=== PATIENT | female | born 1965 | race Caucasian/White ===

== ENCOUNTER 2018-05-06 17:25 | Inpatient (IN) | payer MEDICARE, MEDICAID ==
[~2018-05-06] VITALS: Ht 175.3 cm; Wt 94.0 kg
--- NOTE | 2018-05-06 17:42 | NUR ---
THIS IS A 52 YEAR OLD FEMALE BIB BY AMBULANCE FROM [facility] FOR JAUNDICE, LUNG CA, DM. PT RECEIVED MORPHINE AND ZOFRAN AT OTHER FACILITY, ALONG WITH 2 LITERS OF FLUID. PT BLOOD SUGAR WAS 27 IN ROUTE, WAS GIVEN AN AMP OF D50. PT A&OX 4, BS 69. SET ON [employer], SP02 SATS DROP TO 69% ON RA, PLACE ON 2LN AT 96%, CYCLE VS. BED RAILS UP X 2, CALL LIGHT IN PLACE.
[2018-05-06] MEDS ORDERED: SODIUM CHLORIDE 0.9%, 500ML IVBOLUS ONE (18:00)
[2018-05-06] MEDS ORDERED: INSU100V8 SQ (18:11)
[2018-05-06] MEDS ORDERED: INSU100C SQ-INSULIN (18:11)
[2018-05-06] MEDS ORDERED: PREG100C PO (18:12)
[2018-05-06] MEDS ORDERED: LISI5TAB7 PO (18:12)
[2018-05-06] MEDS ORDERED: LEVO88TA2 PO (18:13)
[2018-05-06] MEDS ORDERED: ALBU6.7H INH (18:19)
--- NOTE | 2018-05-06 18:20 | NUR ---
PT RESTING, IV INFUSING WELL. PT VERBALIZED NO NEEDS AT THIS TIME. CALL LIGHT IN PLACE.
--- NOTE | 2018-05-06 18:53 | NUR ---
report received from mauri rm.
--- NOTE | 2018-05-06 18:55 | NUR ---
REPORT TO PAPO MAZARIEGOS, PLAN OF CARE DISCUSSED.
[2018-05-06] MEDS ORDERED: BISACODYL 10 MG SUPP PR PRN (19:00)
[2018-05-06] MEDS ORDERED: CHOLESTYRAMINE LIGHT 4GM PACKET PO PRN (19:00)
[2018-05-06] MEDS ORDERED: POLYETHYLENE GLYCOL 17 GM PACKET PO PRN (19:00)
--- NOTE | 2018-05-06 19:04 | NUR ---
report given to vazquez rm. all questions answered.
[2018-05-06 19:47] LABS: INTERNATIONAL NORMALIZED RATIO 1.37 (0.93-1.1); PROTHROMBIN TIME 14.2 Seconds (9.6-11.5)
[2018-05-06 20:00] VITALS: BP 119/72
[2018-05-06] MEDS: D5%-0.9% NACL 1,000 ML IV SCH (20:41)
[2018-05-06] MEDS: PREGABALIN 100 MG CAPSULE PO SCH (20:41)
[2018-05-07 01:14] VITALS: BP 114/68
[2018-05-07] MEDS: D5%-0.9% NACL 1,000 ML IV SCH ×2 (04:22→14:14)
[2018-05-07] MEDS: LEVOTHYROXINE 88 MCG TABLET PO SCH (04:22)
[2018-05-07 04:45] LABS: ANION GAP 7 mmol/L (5-15); CALCIUM 7.9 mg/dL (8.5-10.1); CHLORIDE 106 mmol/L (98-107)
[2018-05-07 04:47] LABS: ALANINE AMINOTRANSFERASE 103 U/L (12-78); ALKALINE PHOSPHATASE 920 U/L (45-117); BILIRUBIN,TOTAL 10.9 mg/dL (0.2-1.0); CREATININE 2.41 mg/dL (0.55-1.02); TOTAL PROTEIN 5.5 g/dL (6.4-8.2)
[2018-05-07 04:55] LABS: MEAN CORPUSCULAR HEMOGLOBIN 28.3 pg (27.0-34.8); MEAN CORPUSCULAR HGB CONC 34.6 g/dL (32.4-35.8); MEAN CORPUSCULAR VOLUME 81.7 fL (80-100); MEAN PLATELET VOLUME 9.5 fL (7.4-10.4); PLATELET COUNT 281 x10^3/uL (130-400); RED BLOOD COUNT 3.33 x10^6/uL (3.82-5.3); RED CELL DISTRIBUTION WIDTH 19.9 % (9.6-15.2)
[2018-05-07 05:45] LABS: MD YES
[2018-05-07 05:47] LABS: EOS#(MANUAL) 0.28 x10^3/uL (0.0-0.4); EOS% (MANUAL) 4 % (1-7); LYMPH#(MANUAL) 1.33 x10^3/uL (1-3.4); LYMPHS% (MANUAL) 19 % (22-44); MONOS#(MANUAL) 0.21 x10^3/uL (0.3-2.7); MONOS% (MANUAL) 3 % (2-9); SEG#(MANUAL) 5.18 x10^3/uL (1.8-6.8); SEGS% (MANUAL) 74 % (42-75)
[2018-05-07 05:48] LABS: <PLATELET ESTIMATE> ADEQUATE; <PLT MORPHOLOGY> NORMAL PLT MORPH; <RBC MORPHOLOGY> NORMAL
[2018-05-07 08:55] VITALS: BP 100/60
[2018-05-07] MEDS ORDERED: LISINOPRIL 5 MG TABLET PO SCH (09:00)
[2018-05-07] MEDS: SENNA/DOCUSATE TABLET PO SCH (09:00)
[2018-05-07] MEDS: LEVOFLOXACIN/PMX 500MG/100ML 100 ML IV SCH (09:48)
[2018-05-07] MEDS: PREGABALIN 100 MG CAPSULE PO SCH ×2 (09:49→21:33)
[2018-05-07] MEDS ORDERED: DEXTROSE 4 GM TAB.CHEW PO PRN (12:00)
[2018-05-07] MEDS ORDERED: GLUCAGON 1 MG IM PRN (12:00)
[2018-05-07] MEDS ORDERED: DEXTROSE 50%, 50ML SYRINGE IVPush PRN (12:00)
[2018-05-07] MEDS: SODIUM CHLORIDE FLUSH 10ML SYR IVF SCH ×2 (12:00→21:33)
[2018-05-07] MEDS: INSULIN LISPRO 100 UNITS/ML, PEN SQ-INSULIN SCH ×3 (12:17→21:35)
[2018-05-07] MEDS: morphine SULFATE 10 MG/ML, 1ML IVPush PRN ×2 (14:16→18:50)
[2018-05-07 14:18] VITALS: BP 105/66
[2018-05-07 18:44] VITALS: BP 106/57
[2018-05-08 00:18] VITALS: BP 101/64
[2018-05-08] MEDS ORDERED: MORPHINE SULFATE 4 MG/ML, 1ML ONE (00:54)
[2018-05-08] MEDS: morphine SULFATE 10 MG/ML, 1ML IVPush PRN ×2 (00:58→08:01)
[2018-05-08] MEDS: INSULIN GLARGINE 100 UNITS/ML, PEN SQ-INSULIN SCH ×3 (01:11→22:48)
[2018-05-08 04:54] LABS: MEAN CORPUSCULAR HEMOGLOBIN 28.2 pg (27.0-34.8); MEAN CORPUSCULAR HGB CONC 34.5 g/dL (32.4-35.8); MEAN CORPUSCULAR VOLUME 81.7 fL (80-100); MEAN PLATELET VOLUME 9.3 fL (7.4-10.4); PLATELET COUNT 284 x10^3/uL (130-400); RED BLOOD COUNT 3.35 x10^6/uL (3.82-5.3); RED CELL DISTRIBUTION WIDTH 20.2 % (9.6-15.2)
[2018-05-08 05:05] LABS: CHLORIDE 107 mmol/L (98-107)
[2018-05-08 05:25] LABS: ALANINE AMINOTRANSFERASE 122 U/L (12-78); ALKALINE PHOSPHATASE 919 U/L (45-117); ANION GAP 6 mmol/L (5-15); BILIRUBIN,TOTAL 11.1 mg/dL (0.2-1.0); CALCIUM 8.1 mg/dL (8.5-10.1); CREATININE 2.46 mg/dL (0.55-1.02); TOTAL PROTEIN 5.7 g/dL (6.4-8.2)
[2018-05-08] MEDS: LEVOTHYROXINE 88 MCG TABLET PO SCH (05:57)
[2018-05-08 06:23] LABS: MD YES
[2018-05-08 06:25] LABS: ANISOCYTOSIS 1+; EOS% (MANUAL) 4 % (1-7); LYMPH#(MANUAL) 1.28 x10^3/uL (1-3.4); LYMPHS% (MANUAL) 17 % (22-44); MONOS#(MANUAL) 0.45 x10^3/uL (0.3-2.7); MONOS% (MANUAL) 6 % (2-9); SEG#(MANUAL) 5.48 x10^3/uL (1.8-6.8); SEGS% (MANUAL) 73 % (42-75)
[2018-05-08 06:26] LABS: <PLATELET ESTIMATE> ADEQUATE; <PLT MORPHOLOGY> NORMAL PLT MORPH
[2018-05-08 07:03] VITALS: BP 99/64
[2018-05-08] MEDS: SENNA/DOCUSATE TABLET PO SCH (08:01)
[2018-05-08] MEDS: PREGABALIN 100 MG CAPSULE PO SCH ×2 (08:01→22:46)
[2018-05-08] MEDS: LEVOFLOXACIN/PMX 500MG/100ML 100 ML IV SCH (08:01)
[2018-05-08] MEDS: SODIUM CHLORIDE FLUSH 10ML SYR IVF SCH ×2 (08:05→23:03)
[2018-05-08] MEDS: INSULIN LISPRO 100 UNITS/ML, PEN SQ-INSULIN SCH ×4 (08:05→22:47)
[2018-05-08] MEDS ORDERED: MIDAZOLAM 1 MG/ML, 2ML ONE (09:36)
[2018-05-08] MEDS ORDERED: FENTANYL PF 100 MCG/2ML ONE (09:36)
[2018-05-08] MEDS ORDERED: LIDOCAINE 2%, 6 ML JEL.PF.APP MM ONE ×2 (09:37)
[2018-05-08] MEDS: D5%-0.9% NACL 1,000 ML IV SCH ×2 (10:16→23:03)
[2018-05-08] MEDS ORDERED: OXYcodone 5 MG/5 ML ORAL.SOL UDC PO PRN (10:30)
[2018-05-08] MEDS ORDERED: ALBUTEROL/IPRATROPIUM 2.5MG/0.5MG, 3 ML NPPB PRN (10:30)
[2018-05-08] MEDS ORDERED: MEPERIDINE/PF 25MG/0.5ML IVPush PRN (10:30)
[2018-05-08] MEDS ORDERED: MIDAZOLAM 1 MG/ML, 2ML IV PRN (10:30)
[2018-05-08] MEDS ORDERED: FENTANYL PF 100 MCG/2ML IV PRN (10:30)
[2018-05-08] MEDS ORDERED: ONDANSETRON 2MG/ML, 2ML IV PRN (10:30)
[2018-05-08] MEDS ORDERED: ONDANSETRON 2MG/ML, 2ML ONE (10:43)
[2018-05-08] MEDS ORDERED: DEXAMETHASONE 4 MG/ML, 1ML ONE (10:43)
[2018-05-08] MEDS ORDERED: PROPOFOL 10 MG/ML, 20ML ONE (10:43)
[2018-05-08] MEDS ORDERED: GLUCAGON 1 MG ONE ×2 (10:59→11:48)
[2018-05-08] MEDS ORDERED: PHENYLEPHRINE 10 MG/ML ONE (11:13)
[2018-05-08] MEDS ORDERED: SUCCINYLCHOLINE 20 MG/ML, 10ML ONE (11:13)
[2018-05-08] MEDS ORDERED: ALBUTEROL/IPRATROPIUM 2.5MG/0.5MG, 3 ML ONE (12:29)
[2018-05-08 13:34] VITALS: BP 122/69
[2018-05-08 22:43] VITALS: BP 107/67
[2018-05-09 00:54] VITALS: BP 108/66
[2018-05-09] MEDS: morphine SULFATE 10 MG/ML, 1ML IVPush PRN ×3 (01:07→21:27)
[2018-05-09 05:36] LABS: MEAN CORPUSCULAR HEMOGLOBIN 27.8 pg (27.0-34.8); MEAN CORPUSCULAR HGB CONC 33.8 g/dL (32.4-35.8); MEAN CORPUSCULAR VOLUME 82.3 fL (80-100); MEAN PLATELET VOLUME 9.6 fL (7.4-10.4); PLATELET COUNT 265 x10^3/uL (130-400); RED BLOOD COUNT 3.32 x10^6/uL (3.82-5.3); RED CELL DISTRIBUTION WIDTH 20.3 % (9.6-15.2)
[2018-05-09 05:52] LABS: CHLORIDE 107 mmol/L (98-107)
[2018-05-09] MEDS: LEVOTHYROXINE 88 MCG TABLET PO SCH (05:56)
[2018-05-09 06:18] LABS: ALANINE AMINOTRANSFERASE 108 U/L (12-78); ALBUMIN 1.9 g/dL (3.4-5.0); ALKALINE PHOSPHATASE 989 U/L (45-117); ANION GAP 7 mmol/L (5-15); BILIRUBIN,TOTAL 10.4 mg/dL (0.2-1.0); CALCIUM 8.2 mg/dL (8.5-10.1); CREATININE 2.66 mg/dL (0.55-1.02); TOTAL PROTEIN 5.3 g/dL (6.4-8.2)
[2018-05-09 06:21] LABS: MD YES
[2018-05-09 06:23] LABS: LYMPH#(MANUAL) 1.04 x10^3/uL (1-3.4); LYMPHS% (MANUAL) 14 % (22-44); MONOS% (MANUAL) 4 % (2-9); SEG#(MANUAL) 6.07 x10^3/uL (1.8-6.8); SEGS% (MANUAL) 82 % (42-75)
[2018-05-09 06:24] LABS: <PLATELET ESTIMATE> ADEQUATE; <PLT MORPHOLOGY> NORMAL PLT MORPH; ANISOCYTOSIS 1+; TARGET CELLS 1+
[2018-05-09 06:25] LABS: POLYCHROMASIA 1+
[2018-05-09 07:41] VITALS: BP 98/59
[2018-05-09] MEDS: PREGABALIN 100 MG CAPSULE PO SCH ×2 (07:47→20:44)
[2018-05-09] MEDS: SENNA/DOCUSATE TABLET PO SCH (07:48)
[2018-05-09] MEDS: LEVOFLOXACIN/PMX 250MG/50ML 50 ML IV SCH (07:50)
[2018-05-09] MEDS: SODIUM CHLORIDE FLUSH 10ML SYR IVF SCH ×2 (07:52→20:44)
[2018-05-09] MEDS: INSULIN LISPRO 100 UNITS/ML, PEN SQ-INSULIN SCH ×4 (08:00→20:44)
[2018-05-09] MEDS: INSULIN GLARGINE 100 UNITS/ML, PEN SQ-INSULIN SCH ×3 (08:00→21:25)
[2018-05-09] MEDS: D5%-0.9% NACL 1,000 ML IV SCH (08:04)
[2018-05-09 12:44] LABS: INTERNATIONAL NORMALIZED RATIO 1.98 (0.93-1.1); PROTHROMBIN TIME 20.3 Seconds (9.6-11.5)
[2018-05-09 13:37] VITALS: BP 106/68
[2018-05-09 18:31] VITALS: BP 101/62
[2018-05-10] MEDS: morphine SULFATE 10 MG/ML, 1ML IVPush PRN ×3 (00:13→22:22)
[2018-05-10 00:58] VITALS: BP 109/68
[2018-05-10 04:49] LABS: ALANINE AMINOTRANSFERASE 109 U/L (12-78); ALBUMIN 1.9 g/dL (3.4-5.0); ANION GAP 7 mmol/L (5-15); CALCIUM 8.2 mg/dL (8.5-10.1); CHLORIDE 112 mmol/L (98-107)
[2018-05-10 05:04] LABS: ALKALINE PHOSPHATASE 963 U/L (45-117); BILIRUBIN,TOTAL 10.5 mg/dL (0.2-1.0); CREATININE 2.53 mg/dL (0.55-1.02); TOTAL PROTEIN 5.6 g/dL (6.4-8.2)
[2018-05-10] MEDS: LEVOTHYROXINE 88 MCG TABLET PO SCH (05:21)
[2018-05-10] MEDS: INSULIN LISPRO 100 UNITS/ML, PEN SQ-INSULIN SCH ×4 (07:00→21:00)
[2018-05-10 08:06] LABS: INTERNATIONAL NORMALIZED RATIO 2.55 (0.93-1.1); PROTHROMBIN TIME 25.8 Seconds (9.6-11.5)
[2018-05-10 08:12] VITALS: BP 110/64
[2018-05-10] MEDS: LEVOFLOXACIN/PMX 250MG/50ML 50 ML IV SCH (08:40)
[2018-05-10] MEDS: SODIUM CHLORIDE FLUSH 10ML SYR IVF SCH ×2 (08:43→21:00)
[2018-05-10] MEDS: INSULIN GLARGINE 100 UNITS/ML, PEN SQ-INSULIN SCH ×3 (08:44→21:00)
[2018-05-10] MEDS: SENNA/DOCUSATE TABLET PO SCH (08:44)
[2018-05-10] MEDS: PREGABALIN 100 MG CAPSULE PO SCH ×2 (08:44→21:23)
[2018-05-10] MEDS ORDERED: PHYTONADIONE 10 MG/ML, 1ML SQ ONE (12:00)
[2018-05-10 14:02] LABS: CHLORIDE,URINE RANDOM 35 mmol/L; POTASSIUM,URINE RANDOM 40 mmol/L; SODIUM,URINE RANDOM 26 mmol/L
[2018-05-10 14:03] LABS: MICROSCOPIC INDICATED
[2018-05-10 14:37] VITALS: BP 98/61
[2018-05-10 19:26] VITALS: BP 103/64
[2018-05-10] MEDS ORDERED: MORPHINE SULFATE 4 MG/ML, 1ML ONE (22:16)
[2018-05-11 00:46] VITALS: BP 98/57
[2018-05-11 04:57] LABS: MD YES; MEAN CORPUSCULAR VOLUME 82.4 fL (80-100); MEAN PLATELET VOLUME 9.6 fL (7.4-10.4); PLATELET COUNT 217 x10^3/uL (130-400); RED BLOOD COUNT 3.44 x10^6/uL (3.82-5.3); RED CELL DISTRIBUTION WIDTH 21.2 % (9.6-15.2)
[2018-05-11 05:00] LABS: INTERNATIONAL NORMALIZED RATIO 1.51 (0.93-1.1); PROTHROMBIN TIME 15.6 Seconds (9.6-11.5)
[2018-05-11 05:07] LABS: ALBUMIN 1.8 g/dL (3.4-5.0); ANION GAP 7 mmol/L (5-15); CALCIUM 8.3 mg/dL (8.5-10.1); CHLORIDE 108 mmol/L (98-107)
[2018-05-11 05:11] LABS: ALANINE AMINOTRANSFERASE 95 U/L (12-78); ALKALINE PHOSPHATASE 974 U/L (45-117); BILIRUBIN,TOTAL 12.5 mg/dL (0.2-1.0); CREATININE 2.33 mg/dL (0.55-1.02); TOTAL PROTEIN 5.3 g/dL (6.4-8.2)
[2018-05-11 05:46] LABS: BAND#(MANUAL) 0.06 x10^3/uL; BANDS%(MANUAL) 1 % (0-7); EOS#(MANUAL) 0.13 x10^3/uL (0.0-0.4); EOS% (MANUAL) 2 % (1-7); LYMPH#(MANUAL) 1.15 x10^3/uL (1-3.4); LYMPHS% (MANUAL) 18 % (22-44); MONOS#(MANUAL) 0.51 x10^3/uL (0.3-2.7); MONOS% (MANUAL) 8 % (2-9); SEG#(MANUAL) 4.54 x10^3/uL (1.8-6.8); SEGS% (MANUAL) 71 % (42-75)
[2018-05-11 05:47] LABS: ANISOCYTOSIS 1+; TARGET CELLS 2+
[2018-05-11 05:48] LABS: <PLATELET ESTIMATE> ADEQUATE; <PLT MORPHOLOGY> NORMAL PLT MORPH
[2018-05-11] MEDS: LEVOTHYROXINE 88 MCG TABLET PO SCH (06:00)
[2018-05-11 06:50] VITALS: BP 107/64
[2018-05-11] MEDS: INSULIN LISPRO 100 UNITS/ML, PEN SQ-INSULIN SCH ×4 (07:00→20:04)
[2018-05-11] MEDS: INSULIN GLARGINE 100 UNITS/ML, PEN SQ-INSULIN SCH ×3 (08:09→21:00)
[2018-05-11] MEDS: SENNA/DOCUSATE TABLET PO SCH (08:27)
[2018-05-11] MEDS: LEVOFLOXACIN/PMX 250MG/50ML 50 ML IV SCH (08:27)
[2018-05-11] MEDS: SODIUM CHLORIDE FLUSH 10ML SYR IVF SCH ×2 (08:27→21:00)
[2018-05-11] MEDS: PREGABALIN 100 MG CAPSULE PO SCH ×2 (08:27→20:03)
[2018-05-11] MEDS ORDERED: PHYTONADIONE 10 MG/ML, 1ML SQ ONE (08:30)
[2018-05-11] MEDS: morphine SULFATE 10 MG/ML, 1ML IVPush PRN ×2 (08:33→19:54)
[2018-05-11] MEDS ORDERED: LIDOCAINE-MPF 1%, 5ML ONE (11:40)
[2018-05-11] MEDS ORDERED: FLUMAZENIL 0.1 MG/1 ML, 5ML ONE (13:03)
[2018-05-11] MEDS ORDERED: NALOXONE 1 MG/ML, 2ML ONE (13:03)
[2018-05-11] MEDS ORDERED: MIDAZOLAM 1 MG/ML, 5ML ONE (13:03)
[2018-05-11] MEDS ORDERED: FENTANYL PF 100 MCG/2ML ONE (13:03)
[2018-05-11 14:14] VITALS: BP 115/72
[2018-05-11 19:29] VITALS: BP 110/68
[2018-05-11] MEDS ORDERED: MORPHINE SULFATE 4 MG/ML, 1ML IV ONE (20:30)
[2018-05-12 01:40] VITALS: BP 114/65
[2018-05-12 04:48] LABS: INTERNATIONAL NORMALIZED RATIO 1.06 (0.93-1.1); PROTHROMBIN TIME 11.1 Seconds (9.6-11.5)
[2018-05-12 04:49] LABS: MEAN CORPUSCULAR HEMOGLOBIN 27.2 pg (27.0-34.8); MEAN CORPUSCULAR HGB CONC 33.2 g/dL (32.4-35.8); MEAN CORPUSCULAR VOLUME 81.9 fL (80-100); MEAN PLATELET VOLUME 9.3 fL (7.4-10.4); PLATELET COUNT 221 x10^3/uL (130-400); RED BLOOD COUNT 3.35 x10^6/uL (3.82-5.3)
[2018-05-12 04:55] LABS: CALCIUM 8.2 mg/dL (8.5-10.1); CHLORIDE 108 mmol/L (98-107)
[2018-05-12 05:02] LABS: ALANINE AMINOTRANSFERASE 78 U/L (12-78); ALBUMIN 1.7 g/dL (3.4-5.0); ALKALINE PHOSPHATASE 926 U/L (45-117); ANION GAP 8 mmol/L (5-15); CREATININE 2.18 mg/dL (0.55-1.02); TOTAL PROTEIN 5.2 g/dL (6.4-8.2)
[2018-05-12 05:04] LABS: BILIRUBIN,TOTAL 15.8 mg/dL (0.2-1.0)
[2018-05-12] MEDS: LEVOTHYROXINE 88 MCG TABLET PO SCH (05:37)
[2018-05-12 05:57] LABS: MD YES
[2018-05-12 05:59] LABS: ANISOCYTOSIS 1+; EOS#(MANUAL) 0.07 x10^3/uL (0.0-0.4); EOS% (MANUAL) 1 % (1-7); LYMPH#(MANUAL) 1.21 x10^3/uL (1-3.4); LYMPHS% (MANUAL) 17 % (22-44); MONOS#(MANUAL) 0.57 x10^3/uL (0.3-2.7); MONOS% (MANUAL) 8 % (2-9); SEG#(MANUAL) 5.25 x10^3/uL (1.8-6.8); SEGS% (MANUAL) 74 % (42-75)
[2018-05-12 06:00] LABS: <PLATELET ESTIMATE> ADEQUATE; <PLT MORPHOLOGY> NORMAL PLT MORPH; HYPOCHROMIA 1+; TARGET CELLS 2+
[2018-05-12] MEDS: morphine SULFATE 10 MG/ML, 1ML IVPush PRN ×2 (06:36→15:43)
[2018-05-12 06:52] VITALS: BP 117/66
[2018-05-12] MEDS: INSULIN GLARGINE 100 UNITS/ML, PEN SQ-INSULIN SCH ×3 (07:01→21:00)
[2018-05-12] MEDS: INSULIN LISPRO 100 UNITS/ML, PEN SQ-INSULIN SCH ×4 (07:17→21:00)
[2018-05-12] MEDS: SENNA/DOCUSATE TABLET PO SCH (07:18)
[2018-05-12] MEDS: PREGABALIN 100 MG CAPSULE PO SCH ×2 (07:18→21:00)
[2018-05-12] MEDS: SODIUM CHLORIDE FLUSH 10ML SYR IVF SCH ×2 (07:18→21:00)
[2018-05-12] MEDS: LEVOFLOXACIN/PMX 750MG/150ML 150 ML IV SCH ×2 (07:18→07:48)
[2018-05-12] MEDS ORDERED: NALOXONE 1 MG/ML, 2ML ONE (08:44)
[2018-05-12] MEDS ORDERED: FENTANYL PF 100 MCG/2ML ONE (08:44)
[2018-05-12] MEDS ORDERED: MIDAZOLAM 1 MG/ML, 5ML ONE (08:44)
[2018-05-12] MEDS ORDERED: LIDOCAINE-MPF 1%, 5ML ONE (08:44)
[2018-05-12] MEDS ORDERED: FLUMAZENIL 0.1 MG/1 ML, 5ML ONE (08:44)
[2018-05-12 13:09] VITALS: BP 121/69
[2018-05-12] MEDS: ONDANSETRON 2MG/ML, 2ML IVPush PRN (15:42)
[2018-05-12] MEDS ORDERED: ALUMINUM/MAG/SIMETHICONE 30 ML UDC PO ONE (16:00)
[2018-05-12 20:08] VITALS: BP 97/61
[2018-05-12] MEDS: ALUMINUM/MAG/SIMETHICONE 30 ML UDC PO PRN (22:37)
[2018-05-13 01:17] VITALS: BP 133/66
[2018-05-13 04:51] LABS: ALANINE AMINOTRANSFERASE 150 U/L (12-78); ALBUMIN 1.9 g/dL (3.4-5.0); ANION GAP 8 mmol/L (5-15); CHLORIDE 107 mmol/L (98-107); CREATININE 2.45 mg/dL (0.55-1.02)
[2018-05-13 04:57] LABS: MEAN CORPUSCULAR HEMOGLOBIN 27.5 pg (27.0-34.8); MEAN CORPUSCULAR HGB CONC 33.3 g/dL (32.4-35.8); MEAN CORPUSCULAR VOLUME 82.6 fL (80-100); MEAN PLATELET VOLUME 9.5 fL (7.4-10.4); PLATELET COUNT 250 x10^3/uL (130-400); RED BLOOD COUNT 3.57 x10^6/uL (3.82-5.3); RED CELL DISTRIBUTION WIDTH 21.1 % (9.6-15.2)
[2018-05-13 05:04] LABS: ALKALINE PHOSPHATASE 1112 U/L (45-117); TOTAL PROTEIN 5.5 g/dL (6.4-8.2)
[2018-05-13 05:09] LABS: BILIRUBIN,TOTAL 18.2 mg/dL (0.2-1.0)
[2018-05-13 05:44] LABS: MD YES
[2018-05-13 05:46] LABS: <PLATELET ESTIMATE> ADEQUATE; <PLT MORPHOLOGY> NORMAL PLT MORPH; ANISOCYTOSIS 1+; HYPOCHROMIA 1+; LYMPH#(MANUAL) 0.86 x10^3/uL (1-3.4); LYMPHS% (MANUAL) 9 % (22-44); MONOS#(MANUAL) 0.29 x10^3/uL (0.3-2.7); MONOS% (MANUAL) 3 % (2-9); NRBC % (MANUAL) 1 % (0-1); SEG#(MANUAL) 8.45 x10^3/uL (1.8-6.8); SEGS% (MANUAL) 88 % (42-75); TARGET CELLS 2+
[2018-05-13] MEDS: LEVOTHYROXINE 88 MCG TABLET PO SCH (06:02)
[2018-05-13] MEDS: morphine SULFATE 10 MG/ML, 1ML IVPush PRN ×3 (06:25→13:37)
[2018-05-13 07:55] VITALS: BP 94/56
[2018-05-13] MEDS: ONDANSETRON 2MG/ML, 2ML IVPush PRN ×2 (07:59→19:24)
[2018-05-13] MEDS: INSULIN LISPRO 100 UNITS/ML, PEN SQ-INSULIN SCH ×4 (08:16→21:39)
[2018-05-13] MEDS: SENNA/DOCUSATE TABLET PO SCH (09:37)
[2018-05-13] MEDS: PREGABALIN 100 MG CAPSULE PO SCH ×2 (09:37→21:38)
[2018-05-13] MEDS: INSULIN GLARGINE 100 UNITS/ML, PEN SQ-INSULIN SCH ×3 (09:38→21:39)
[2018-05-13] MEDS: SODIUM CHLORIDE FLUSH 10ML SYR IVF SCH ×2 (09:39→19:25)
[2018-05-13 14:27] VITALS: BP 90/56
[2018-05-13 19:26] VITALS: BP 92/59
[2018-05-14] VITALS (7 sets, daily range): BP systolic 63–108; BP diastolic 39–74
[2018-05-14] MEDS: ONDANSETRON 2MG/ML, 2ML IVPush PRN (03:30)
[2018-05-14] MEDS: LEVOTHYROXINE 88 MCG TABLET PO SCH (05:54)
[2018-05-14] MEDS: morphine SULFATE 10 MG/ML, 1ML IVPush PRN ×2 (06:18→12:43)
[2018-05-14] MEDS: SENNA/DOCUSATE TABLET PO SCH (09:16)
[2018-05-14] MEDS: PREGABALIN 100 MG CAPSULE PO SCH ×2 (09:16→22:21)
[2018-05-14] MEDS: LEVOFLOXACIN/PMX 750MG/150ML 150 ML IV SCH (09:16)
[2018-05-14] MEDS: SODIUM CHLORIDE FLUSH 10ML SYR IVF SCH ×2 (09:17→22:21)
[2018-05-14] MEDS: INSULIN GLARGINE 100 UNITS/ML, PEN SQ-INSULIN SCH ×3 (09:17→22:21)
[2018-05-14] MEDS: INSULIN LISPRO 100 UNITS/ML, PEN SQ-INSULIN SCH ×4 (09:18→22:21)
[2018-05-14] MEDS ORDERED: SODIUM CHLORIDE 0.9% 1,000ML IVBOLUS ONE (15:00)
[2018-05-14] MEDS ORDERED: HYDROCORTISONE 100 MG INJ. IVPush STA (15:12)
[2018-05-14] MEDS ORDERED: ALBUMIN HUMAN 25% 100 ML IV STA (15:14)
[2018-05-15 00:55] VITALS: BP 92/60
[2018-05-15] MEDS: ALUMINUM/MAG/SIMETHICONE 30 ML UDC PO PRN (04:27)
[2018-05-15] MEDS: LEVOTHYROXINE 88 MCG TABLET PO SCH ×2 (06:22→06:24)
[2018-05-15 06:55] VITALS: BP 101/63
[2018-05-15] MEDS: INSULIN LISPRO 100 UNITS/ML, PEN SQ-INSULIN SCH ×4 (07:54→21:00)
[2018-05-15] MEDS: INSULIN GLARGINE 100 UNITS/ML, PEN SQ-INSULIN SCH ×3 (07:57→21:00)
[2018-05-15] MEDS: PREGABALIN 100 MG CAPSULE PO SCH ×2 (10:12→21:44)
[2018-05-15] MEDS: SENNA/DOCUSATE TABLET PO SCH (10:12)
[2018-05-15 12:19] VITALS: BP 92/50
[2018-05-15] MEDS: morphine SULFATE 10 MG/ML, 1ML IVPush PRN ×2 (13:26→21:43)
[2018-05-15] MEDS: SODIUM CHLORIDE FLUSH 10ML SYR IVF SCH ×2 (13:29→21:44)
[2018-05-15] MEDS: ONDANSETRON 2MG/ML, 2ML IVPush PRN (16:39)
[2018-05-15 19:05] VITALS: BP 96/63
[2018-05-16 00:04] VITALS: BP 99/59
[2018-05-16] MEDS: morphine SULFATE 10 MG/ML, 1ML IVPush PRN ×2 (00:54→04:37)
[2018-05-16] MEDS: LEVOTHYROXINE 88 MCG TABLET PO SCH (06:00)
[2018-05-16 06:50] VITALS: BP 97/62
[2018-05-16] MEDS: INSULIN LISPRO 100 UNITS/ML, PEN SQ-INSULIN SCH ×2 (07:50→12:15)
[2018-05-16] MEDS: SODIUM CHLORIDE FLUSH 10ML SYR IVF SCH (07:51)
[2018-05-16] MEDS: LEVOFLOXACIN/PMX 750MG/150ML 150 ML IV SCH (07:54)
[2018-05-16] MEDS: SENNA/DOCUSATE TABLET PO SCH (07:55)
[2018-05-16] MEDS: PREGABALIN 100 MG CAPSULE PO SCH (07:55)
[2018-05-16] MEDS: INSULIN GLARGINE 100 UNITS/ML, PEN SQ-INSULIN SCH (07:59)
[2018-05-16] MEDS ORDERED: OXYcodone/APAP 5/325MG TABLET PO PRN (12:00)
[2018-05-16] MEDS: ALUMINUM/MAG/SIMETHICONE 30 ML UDC PO PRN (12:07)
[2018-05-16 12:25] VITALS: BP 93/54
[2018-05-16] MEDS ORDERED: FAMOTIDINE 20 MG TABLET PO SCH (21:00)
== END 2018-05-17 01:10 | disposition expired | DRG 435 ==
LOC: ED 19:06 → EDIP 19:07 → 3NW 19:18
PROVIDERS: ADMIT Family Medicine; ATTEND Family Medicine
PROC: 0F7D8DZ Dilation of Pancreatic Duct with Intraluminal Device, Via Natural or Artificial Opening Endoscopic (ICD-10-PCS; 2018-05-08)
PROC: 0FJB8ZZ Inspection of Hepatobiliary Duct, Via Natural or Artificial Opening Endoscopic (ICD-10-PCS; 2018-05-08)
PROC: 0FDG4ZX Extraction of Pancreas, Percutaneous Endoscopic Approach, Diagnostic (ICD-10-PCS; 2018-05-08)
PROC: 0DJ08ZZ Inspection of Upper Intestinal Tract, Via Natural or Artificial Opening Endoscopic (ICD-10-PCS; principal; 2018-05-08 10:00)
PROC: 0WB83ZX Excision of Chest Wall, Percutaneous Approach, Diagnostic (ICD-10-PCS; 2018-05-11)
PROC: 0F793DZ Dilation of Common Bile Duct with Intraluminal Device, Percutaneous Approach (ICD-10-PCS; 2018-05-12)
PROC: BF101ZZ Fluoroscopy of Bile Ducts using Low Osmolar Contrast (ICD-10-PCS; 2018-05-12)
DX: C25.0 Malignant neoplasm of head of pancreas (principal); K83.1 Obstruction of bile duct; N17.0 Acute kidney failure with tubular necrosis; J18.9 Pneumonia, unspecified organism; C34.90 Malignant neoplasm of unspecified part of unspecified bronchus or lung; E87.2 Acidosis; D68.9 Coagulation defect, unspecified; J44.0 Chronic obstructive pulmonary disease with (acute) lower respiratory infection; E46 Unspecified protein-calorie malnutrition; I31.3 Pericardial effusion (noninflammatory); J44.9 Chronic obstructive pulmonary disease, unspecified; Z88.0 Allergy status to penicillin; E03.9 Hypothyroidism, unspecified; G40.909 Epilepsy, unspecified, not intractable, without status epilepticus; R91.1 Solitary pulmonary nodule; I95.9 Hypotension, unspecified; M54.9 Dorsalgia, unspecified; G89.29 Other chronic pain; R19.4 Change in bowel habit; R19.5 Other fecal abnormalities; R59.0 Localized enlarged lymph nodes; Z66 Do not resuscitate; Z51.5 Encounter for palliative care; E11.42 Type 2 diabetes mellitus with diabetic polyneuropathy; E11.22 Type 2 diabetes mellitus with diabetic chronic kidney disease; E11.65 Type 2 diabetes mellitus with hyperglycemia; Z68.30 Body mass index [BMI] 30.0-30.9, adult; D64.9 Anemia, unspecified; E78.5 Hyperlipidemia, unspecified; F17.210 Nicotine dependence, cigarettes, uncomplicated; N18.9 Chronic kidney disease, unspecified; I12.9 Hypertensive chronic kidney disease with stage 1 through stage 4 chronic kidney disease, or unspecified chronic kidney disease; K82.8 Other specified diseases of gallbladder; L29.9 Pruritus, unspecified; Z79.4 Long term (current) use of insulin; Z85.118 Personal history of other malignant neoplasm of bronchus and lung; Z90.711 Acquired absence of uterus with remaining cervical stump; Z99.81 Dependence on supplemental oxygen
CPT/HCPCS: 36415; 38505; 47539; 47540; 71250; 74150; 74330; 77012; 80053; 80074; 81001; 82140; 82436; 82962; 83605; 84133; 84300; 84439; 84681; 85025; 85610; 85730; 88305; 88341; 88342; 94640; 99156; 99157; 99285; C1725; C1894; G0378; J1100; J1956; J2250; J2405; J2704; J3010; J3430; J7042; J7620; P9047; C1751; C1769; C1876; C2625; J0330; J1610; J1720; J1815; J2270; J2310; J2370; J7030; J7040